=== PATIENT | female | born 1970 | race American Indian/Alaskan Native ===

== ENCOUNTER 2016-04-08 08:59 | Emergency (ER) | payer BC ==
[2016-04-08 09:13] VITALS: BP 143/93
--- NOTE | 2016-04-08 09:20 | Emergency Department Report ---
Chief Complaint: Chest Pain Stated Complaint: CHEST PAIN Time Seen by Provider: 04/08/16 09:15 - HPI History of Present Illness: Patient here reported that she's having chest pain times one week. Patient PCP is Dr. Sruthi Mcmanus. She goes to [facility] for cardiology. Patient says she had a stress test in 2012 and was normal. She says she was scheduled for a stress test today at [place] but she canceled it because she had a "date. Stress test is rescheduled for next week. Patient also said she had an EKG admits that hospital this past Monday. Chest pain is located mid to left chest and feels sharp with some shortness of breath. She is also complaining the pain to her right scapular area. Denies any nausea vomiting. She has a history of diabetes and high blood pressure. She had partial hysterectomy in the past. - ROS Review of Systems: all Systems are negative unless stated in HPI above. - Exam Vital Signs: Vital Signs 04/08/16 09:09 Temperature 98.3 F Pulse Rate 92 H Blood Pressure 143/93 O2 Sat by Pulse 100 Oximetry Resp 18 Physical Exam: General: This is a 45-year-old female well-nourished well-developed nontoxic in appearance. She is had partial hysterectomy in the past therefore no need for test CV: S1, S2. Regular rate and rhythm. Lungs: Clear to auscultate bilaterally. No rhonchi wheezes or rales. MSE screening note: Focused history and physical exam performed. Due to findings the following was ordered:see mdm ED Medical Decision Making - Medical Decision Making Medical decision making: Patient seen by provider in triage area. Appropriate protocol activated and patient to main ED to be seen by physician. ED Disposition for MSE Condition: Stable
[2016-04-08 09:51] LABS: Basophils % (Auto) 1.1 % (0.0-1.8); Hematocrit 41.1 % (30.3-42.9); Mean Corpuscular HGB Conc 34 % (30-34); Mean Corpuscular Hemoglobin 30 pg (28-32); Mean Corpuscular Volume 87 fl (79-97); Platelet Count 312 K/mm3 (140-440); Red Blood Count 4.72 M/mm3 (3.65-5.03); Red Cell Distribution Width 13.6 % (13.2-15.2); White Blood Count 3.8 K/mm3 (4.5-11.0)
[2016-04-08 10:14] LABS: Creatine Kinase MB 1.3 ng/mL (0.0-4.0)
[2016-04-08 10:15] LABS: Anion Gap 17 mmol/L; Blood Urea Nitrogen 9 mg/dL (7-17); Calcium 8.7 mg/dL (8.4-10.2); Carbon Dioxide 25 mmol/L (22-30); Chloride 102.4 mmol/L (98-107); Creatine Kinase 50 units/L (30-135); Glucose 119 mg/dL (65-100); Potassium 4.4 mmol/L (3.6-5.0); Sodium 140 mmol/L (137-145)
[2016-04-08] MEDS ORDERED: BABY ASPIRIN PO ONE (15:44)
--- NOTE | 2016-04-08 16:26 | Emergency Department Report ---
ED Chest Pain HPI - General Chief Complaint: Chest Pain Stated Complaint: CHEST PAIN Time Seen by Provider: 04/08/16 09:15 Source: patient Mode of arrival: Ambulatory Limitations: No Limitations - History of Present Illness Initial Comments: This is a 45-year-old Afro-[place] female presents emergency Department with complaint of midsternal nonradiating intermittent chest pain for the past 5-6 days. Patient describes it as a "funny feeling." She denies any shortness of breath, nausea, vomiting or diaphoresis. Patient says that starting last Monday , 5 days ago it was associated with some increase in her blood pressure. She went to [facility] where she had an EKG and labs done and was told that she was dehydrated and treated with some clonidine for her hypertension. She went to see her primary care doctor after that and was set up with an appointment to see a wheel press clerk but didn't go secondary to the "funny feeling " that she had. Patient says that she is set up for a stress test next week but has never had one previously. She is not taken anything for symptoms prior to presentation. Patient has history of diabetes, hypertension. She denies any history of TN, CVA, PE/DVT. No recent travel or sick contacts at home. LORIE score - Lorie Score Age > 65: (0) No Aspirin use within the Past 7 Days: (0) No 3 or more CAD Risk Factors: (0) No 2 or more Angina events in past 24 hrs: (1) Yes Known CAD with more than 50% Stenosis: (0) No Elevated Cardiac Markers: (0) No ST Deviation Greater than 0.5mm: (0) No LORIE Score: 1 ED Review of Systems ROS: Stated complaint: CHEST PAIN Other details as noted in HPI Comment: All other systems reviewed and negative Constitutional: denies: chills, fever Eyes: denies: eye pain, eye discharge, vision change ENT: denies: ear pain, throat pain Respiratory: denies: cough, shortness of breath, wheezing Cardiovascular: chest pain. denies: palpitations Gastrointestinal: denies: abdominal pain, nausea, diarrhea Genitourinary: denies: urgency, dysuria, discharge Musculoskeletal: denies: back pain, joint swelling, arthralgia Skin: denies: rash, lesions Neurological: denies: headache, weakness, paresthesias ED Past Medical Hx - Past Medical History Previous Medical History?: Yes Hx Hypertension: Yes Hx Diabetes: Yes - Surgical History Past Surgical History?: Yes Hx Breast Surgery: Yes (1999, 2004) - Social History Smoking Status: Never Smoker Substance Use Type: None ED Physical Exam - General Limitations: No Limitations - Other Other exam information: GENERAL: The patient is well-developed well-nourished. Patient does not appear in any acute distress. HEENT: Normocephalic. Atraumatic. Extraocular motions are intact. Patient has moist mucous membranes. Pupils equal reactive to light bilaterally. NECK: Supple. Trachea is midline. CHEST/LUNGS: Clear to auscultation. There is no respiratory distress noted. HEART/CARDIOVASCULAR: Regular. There is no tachycardia. There is no gallop rub or murmur. ABDOMEN: Abdomen is soft, nontender. Patient has normal bowel sounds. There is no abdominal distention. SKIN: There is no rash. There is no edema. There is no diaphoresis. NEURO: The patient is awake, alert, and oriented. The patient is cooperative. The patient has no focal neurologic deficits. The patient has normal speech. MUSCULOSKELETAL: There is no tenderness or deformity. There is no limitation range of motion. There is no evidence of acute injury. ED Course Vital Signs 04/08/16 04/08/16 04/08/16 09:09 16:15 16:17 Temperature 98.3 F Pulse Rate 92 H 82 Respiratory 16 Rate Blood Pressure 143/93 O2 Sat by Pulse 100 98 Oximetry ED Medical Decision Making - Lab Data Result diagrams: 04/08/16 09:40 04/08/16 09:40 - EKG Data -: EKG Interpreted by Me EKG shows normal: sinus rhythm, axis, intervals, QRS complexes (Q waves to the septal leads), ST-T waves Rate: normal - EKG Data When compared to previous EKG there are: previous EKG unavailable Interpretation: other (Q waves to the septal leads) - Radiology Data Radiology results: image reviewed interpreted by me: Chest x-ray did not show any acute process. Heart is normal shape and size. No effusions. No pneumothorax. No signs of pneumonia seen. - Medical Decision Making 45-year-old female presents to the emergency department with some midline chest pain this been going on for the past week. No associated shortness of breath. Patient has a LORIE score of 1. Patient's chest pain has improved prior to presentation and now has resolved upon reevaluation. Chest x-ray does not show any acute process. EKG does not show any signs of ST elevation TN or dysrhythmia. Patient's labs include negative troponins 3 and a negative d- dimer. Patient appears very low suspicion for coronary artery disease chest pain. Patient has a primary care doctor and is already set up to have a stress test next week through cardiology. Patient appears safe for discharge home at this time. However the patient agrees to return to the emergency department with any return of her chest pain or any acute distress. - Differential Diagnosis TN, PE, costochondritis, pneumonia, muscle strain Critical Care Time: No Critical care attestation.: If time is entered above; I have spent that time in minutes in the direct care of this critically ill patient, excluding procedure time. ED Disposition Clinical Impression: Chest pain Qualifiers: Chest pain type: unspecified Qualified Code(s): R07.9 - Chest pain, unspecified Disposition: DISCHARGED TO HOME OR SELFCARE Is pt being admited?: No Does the pt Need Aspirin: No Condition: Stable Instructions: Chest Pain (ED) Additional Instructions: Please follow-up with your primary care doctor and with the wheel press clerk and with your stress test next week as scheduled. Return to the emergency department with any return of your chest pain, or any acute distress. Forms: Work/School Release Form(ED) Time of Disposition: 18:12
--- NOTE | 2016-04-10 10:56 | XRay Report ---
AP CHEST: HISTORY: chest pain AP view of the chest demonstrates a normal mediastinal and cardiac contour with clear lungs and normal bony and soft tissue structures. Surgical clips are noted in the right axilla and both superior breasts. Correlate with the patient's history. IMPRESSION: Unremarkable AP chest.
== END 2016-04-08 19:05 | disposition home or self-care (01) ==
LOC: ED 08:59
DX: R07.9 Chest pain, unspecified (principal); E11.9 Type 2 diabetes mellitus without complications; I10 Essential (primary) hypertension; I25.2 Old myocardial infarction; I63.9 Cerebral infarction, unspecified; I82.409 Acute embolism and thrombosis of unspecified deep veins of unspecified lower extremity
CPT/HCPCS: 36415; 71010; 80048; 82550; 82553; 84484; 85025; 85379; 93005; 93010